=== PATIENT | female | born 1955 | race Hispanic/Latino ===

== ENCOUNTER → 2019-09-05 | Outpatient (CLI) | payer OTHER | END | disposition home or self-care (01) | LOC: OIH 11:33 | PROVIDERS: ATTEND Family Medicine | DX: I10 Essential (primary) hypertension (principal) | CPT/HCPCS: 71046 ==

== ENCOUNTER → 2023-01-14 | Outpatient (CLI) | payer OTHER ==
[2023-01-14 12:16] LABS: EOSINOPHILS % (AUTO) 2.5 % (0.0-8.0); HEMATOCRIT 39.1 % (36-48); LYMPHOCYTES % (AUTO) 36.4 % (21.0-51.0); MEAN CORPUSCULAR HEMOGLOBIN 27.5 pg (27.0-33.0); MEAN CORPUSCULAR HGB CONC 32.2 g/dL (32.0-36.0); MEAN CORPUSCULAR VOLUME 85.4 fL (79-99); MONOCYTES % (AUTO) 7.6 % (3.0-13.0); NEUTROPHILS % (AUTO) 52.4 % (40.0-77.0); PLATELET COUNT (AUTO) 208 K/uL (130-400); RED BLOOD CELL COUNT(AUTO) 4.58 MIL/uL (4.00-5.50); RED CELL DISTRIBUTION WIDTH 13.2 % (11.0-15.5); WHITE BLOOD COUNT (AUTO) 6.8 K/uL (4.8-10.8)
[2023-01-14 12:50] LABS: ALBUMIN 3.9 g/dL (3.5-5.0); CREATININE 1.5 mg/dL (0.5-1.5); POTASSIUM 4.9 mmol/L (3.5-5.1); TOTAL PROTEIN, SERUM 7.6 g/dL (6.0-8.3)
== END | disposition home or self-care (01) ==
LOC: LAB 10:01
PROVIDERS: ATTEND Physician Assistant
DX: I34.0 Nonrheumatic mitral (valve) insufficiency (principal)
CPT/HCPCS: 36415; 80053; 83880; 85025; 85378

== ENCOUNTER → 2023-01-28 | Outpatient (CLI) | payer OTHER | END | disposition home or self-care (01) | LOC: RAH 08:18 | PROVIDERS: ATTEND Internal Medicine Cardiovascular Disease | DX: R06.02 Shortness of breath (principal); R79.89 Other specified abnormal findings of blood chemistry | CPT/HCPCS: 78582; 71046; A9540; A9558 ==

== ENCOUNTER → 2023-03-14 | Outpatient (CLI) | payer OTHER ==
[~2023-03-14] MED LIST: REGADENOSON 0.4 MG/5 ML PF SYG IVP SCH
== END | disposition home or self-care (01) ==
LOC: RAH 08:33
PROVIDERS: ATTEND Internal Medicine
DX: R06.09 Other forms of dyspnea (principal)
CPT/HCPCS: 78452; 96374; 93017; J2785; A9500 ×2

== ENCOUNTER → 2024-08-23 | Outpatient (CLI) | payer OTHER ==
--- NOTE | 2024-08-23 20:48 | HMCSR ---
APPROVED REPORT EXAM: Two-dimensional and M-mode echocardiogram with Doppler and color Doppler. INDICATION ICD: Abnormal findings on diagnostic imaging of heart and coronary circulation R93.1 2D Dimensions RVDd3.5 cmLVEF(%)60.3 (>50%)LVED Vol(simp.)64.3 mL IVSd0.9 (0.7-1.1cm)FS(%)32 %LVES Vol(simp.)24.8 mL LVDd3.8 (3.8-5.6cm)LA (2D)3.6 (1.6-4.0cm)LVEF(%, simp.)61 % PWd1.0 (0.7-1.1cm)Ao Root(2D)2.6 (2.0-3.7cm)LA ESV INDEX (4CH)23.70 mL/m2 IVSs1.0 cmLVOT diam1.9 (1.8-2.4cm)LA ESV INDEX (2CH)22.00 mL/m2 LVDs2.6 (2.5-4.0cm)LA ESV INDEX (BP)22.50 mL/m2 PWs1.3 cm M-Mode Dimensions EPSS0.8 cm LA (MM)3.9 (1.6-4.0cm) Ao Root(MM)2.9 (2.0-3.7cm) Aortic Valve AoV VTI0.4 mAo Mean GR6.0 mmHgLVOT VTI0.21 m MORENA (VMAX)1.6 cm2AVA (VTI) 1.6 cm2 Mitral Valve MV E Vmax65.5 cm/sDECEL Zngt258 ms MV A Vmax76.6 cm/sP 1/2 T79 ms E/A ratio0.9MVA (PHT)2.8 cm2 TDI E/E' Czoxvd60.1E/E' Lateral5.7 Medial E' Peak V5.40 cm/sLateral E' Peak V11.50 cm/s Left Ventricle The left ventricle is normal size. There is normal LV segmental wall motion. There is normal left eros tricular wall thickness. LVEF is 60-65%. The left ventricular diastolic function is normal. Right Ventricle The right ventricle is normal size. The right ventricular systolic function is normal. Atria The left atrium size is normal. The right atrium size is normal. Aortic Valve The aortic valve is normal in structure. No aortic regurgitation is present. There is no aortic valvu lar stenosis. Mitral Valve The mitral valve is normal in structure. There is no evidence of significant mitral regurgitation. Th ere is no mitral valve stenosis. Tricuspid Valve The tricuspid valve is normal in structure. There is no tricuspid valve regurgitation noted. Pulmonic Valve The pulmonary valve is normal in structure. There is no pulmonic valvular regurgitation. Great Vessels The aortic root is normal in size. The IVC is normal in size and collapses >50% with inspiration. Pericardium There is no pericardial effusion. Conclusion LVEF is 60-65%.
== END | disposition home or self-care (01) ==
LOC: RAH 13:15
PROVIDERS: ATTEND Internal Medicine
DX: R93.1 Abnormal findings on diagnostic imaging of heart and coronary circulation (principal)
CPT/HCPCS: 93306

== ENCOUNTER → 2025-04-04 | Outpatient (CLI) | payer OTHER ==
--- NOTE | 2025-04-04 13:58 | HMCIMG ---
EXAM: US Retroperitoneum Complete, Renal. CLINICAL HISTORY: Acute kidney injury (TABATHA). TECHNIQUE: Real-time ultrasound of the retroperitoneum (complete) with image documentation. Sonographic evaluation of the kidneys and urinary bladder was performed. COMPARISON: None provided. FINDINGS: RIGHT KIDNEY: Measures 10.0 x 4.5 x 3.9 cm. 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 No hydronephrosis or renal calculus identified. No hydronephrosis or renal calculi in either kidney. LEFT KIDNEY: Measures 9.3 x 5.6 x 5.3 cm. No hydronephrosis or renal calculus identified. BLADDER: Wall thickness is 6 mm. Bladder is partially distended. Partially distended urinary bladder with mildly thickened wall, nonspecific. IMPRESSION: 1. 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 2. No hydronephrosis or renal calculi in either kidney. 3. Partially distended urinary bladder with mildly thickened wall, nonspecific. /[place]
== END | disposition home or self-care (01) ==
LOC: RAH 12:49
PROVIDERS: ATTEND Internal Medicine
DX: N17.9 Acute kidney failure, unspecified (principal); N32.89 Other specified disorders of bladder
CPT/HCPCS: 76770